=== PATIENT | female | born 1995 | race Hispanic/Latino ===

== ENCOUNTER 2023-04-27 09:18 | Emergency (ER) | payer OTHER ==
[2023-04-27 09:40] LABS: Specific Gravity 1.028 (1.005-1.030)
[2023-04-27] MEDS ORDERED: ONDANSETRON 4 MG/2 ML VIAL ONE (09:45)
[2023-04-27] MEDS ORDERED: NA CHLORIDE 0.9% 1,000 ML ONE (09:45)
[2023-04-27] MEDS ORDERED: MORPHINE 4 MG/ML SYR ONE (09:45)
[2023-04-27 09:47] LABS: Specific Gravity 1.028 (1.005-1.030); Urine Bacteria <20 /HPF (<20); Urine Bilirubin NEGATIVE (Negative); Urine Blood Trace (Negative); Urine Clarity Extremely Turbid (Clear); Urine Color Light-Yellow (Yellow); Urine Glucose NEGATIVE (Negative); Urine Mucus Slight /HPF (None Seen); Urine Protein 1+ (Negative); Urine Urobilinogen Normal (Normal); Urine pH 7.5 (5.0-7.0)
[2023-04-27 09:55] LABS: Absolute Lymphocytes (CBC) 1.7 K/uL (0.7-4.9); Hematocrit 36.9 % (36.0-45.0); MCV 84.7 fL (80-100); MPV 8.4 fL (7.6-11.3); Platelets 294 thou/uL (152-406); RBC Red Blood Cell Count 4.36 M/uL (3.86-4.86)
--- NOTE | 2023-04-27 10:30 | RAD REPORT ---
EXAM DESCRIPTION: CT - Stone Protocol - 04/27/2023 10:07 am CLINICAL HISTORY: Flank pain. FLANK PAIN COMPARISON: No comparisons TECHNIQUE: Axial images were obtained without oral or IV contrast. Lack of contrast limits solid org an and vascular assessment. The [id number] spans the entirety of the system partially obscuring uppermost abdomen and lung bases. Coronal reformatted images were obtained and reviewed. All CT scans are performed using dose optimization technique as appropriate and may include automated exposure control or mA/KV adjustment according to patient size. FINDINGS: The lower lung george are clear. Imaged portions of the liver demonstrates diffuse fatty infiltration.Spleen appears normal. The pancr eas and adrenal glands are normal. No pathologic lymphadenopathy in the abdomen or pelvis. 9 mm stone is present in the right renal pelvis resulting mild right hydronephrosis. Punctate calculu s inferior right kidney. Punctate stone left kidney also likely present. No bowel obstruction, free air, free fluid or abscess. Normal appendix noted. No significant bony abnormality. IMPRESSION: 9 mm calculus right renal pelvis with mild right hydronephrosis. Additional punctate calculi bilaterally.
[2023-04-27 10:43] LABS: Albumin 3.9 g/dL (3.4-5.0); Bilirubin Total 0.5 mg/dL (0.2-1.0); Potassium 3.7 mEq/L (3.5-5.1); Protein, Total 8.3 g/dL (6.4-8.2)
[2023-04-27] MEDS ORDERED: KETOROLAC 30 MG/ML INJ ONE (11:05)
--- NOTE | 2023-04-27 11:14 | ER ---
Nurse's Notes [facility] Name: Laura Edmondson Age: 27 yrs Sex: Female : 1995 Arrival Date: 04/27/2023 Time: 09:18 Bed 2 Private MD: Diagnosis: Calculus of kidney Presentation: 04/27 09:22 Chief complaint: Patient states: right flank pain since 0600 , + nausea, no hx of iw kidney stones , pain radiates to lower abd. Coronavirus screen: At this time, the client does not indicate any symptoms associated with coronavirus-19. Ebola Screen: Patient negative for fever greater than or equal to 101.5 degrees Fahrenheit, and additional compatible Ebola Virus Disease symptoms Patient denies exposure to infectious person. Patient denies travel to an Ebola-affected area in the 21 days before illness onset. No symptoms or risks identified at this time. Initial Sepsis Screen: Does the patient meet any 2 criteria? No. Patient's initial sepsis screen is negative. Does the patient have a suspected source of infection? No. Patient's initial sepsis screen is negative. Risk Assessment: Do you want to hurt yourself or someone else? Patient reports no desire to harm self or others. Onset of symptoms was April 27, 2023. 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 - Social history:: Smoking status: Patient denies any tobacco usage or history of. Screenin:40 [facility] ED Fall Risk Assessment (Adult) History of falling in the last 3 months, ko1 including since admission No falls in past 3 months (0 pts) Confusion or Disorientation No (0 pts) Intoxicated or Sedated No (0 pts) Impaired Gait No (0 pts) Mobility Assist Device Used No (0 pt) Altered Elimination No (0 pt) Score/Fall Risk Level 0 - 2 = Low Risk Oriented to surroundings, Maintained a safe environment, Educated pt \T\ family on fall prevention, incl call for assistance when getting out of bed, Assessed \T\ reinforced patient's understanding of fall precautions, Provided non-skid footwear, Hourly rounding (assess needs \T\ fall precautionary measures) done, Used ambulatory aids as needed (educated on \T\ assisted with), Used gait belt as appropriate. Abuse screen: Denies threats or abuse. Denies injuries from another. Nutritional screening: No deficits noted. Tuberculosis screening: No symptoms or risk factors identified. Assessment: 09:40 General: Appears distressed, uncomfortable, Behavior is calm, cooperative, appropriate ko1 for age. Pain: Complains of pain in back. Neuro: No deficits noted. Cardiovascular: No deficits noted. Respiratory: No deficits noted. GI: No deficits noted. : No deficits noted. EENT: No deficits noted. Derm: No deficits noted. Musculoskeletal: Reports pain in right mid back and right low back. Vital Signs: 09:22 BP 114 / 89; Pulse 115; Resp 18; Temp 97.7; Pulse Ox 100% on R/A; Weight 90.72 kg; Pain iw 10/10; 10:16 BP 116 / 73; Pulse 104; Resp 16; Pulse Ox 97% ; ko1 10:49 BP 109 / 72; Pulse 98; Resp 18; Pulse Ox 100% ; ko1 11:27 BP 120 / 78; Pulse 92; Resp 16; Pulse Ox 100% ; ko1 09:22 Pain Scale: Adult iw ED Course: 09:21 Patient arrived in ED. iw 09:22 Parul Allan [facility]-C [facility] kb 09:22 Mahad Morales MD is Attending Physician. kb 09:23 Triage completed. iw 09:24 Arm band placed on. iw 09:28 Raysa Leung, JANINA is Primary Nurse. ko1 09:33 Urinalysis w/ reflexes Sent. ko1 09:33 Test, Urine Sent. ko1 09:40 Patient has correct armband on for positive identification. Bed in low position. Call ko1 light in reach. Side rails up X2. Client placed on continuous cardiac and pulse oximetry monitoring. NIBP monitoring applied. manager division on. Door closed. Noise minimized. Lights dimmed. Warm blanket given. 09:40 Inserted saline lock: 20 gauge in left antecubital area, using aseptic technique. Blood ko1 collected. 09:48 CBC with Diff Sent. ko1 09:48 CMP Sent. ko1 09:48 Lipase Sent. ko1 10:08 Urine Culture Sent. ko1 10:09 CT Stone Protocol In Process Unspecified. EDMS 11:14 Juno Cadena MD is Referral Physician. kb 11:27 Provided Education on: na. ko1 11:27 No provider procedures requiring assistance completed. IV discontinued, intact, ko1 bleeding controlled, No redness/swelling at site. Pressure dressing applied. Administered Medications: 09:45 Drug: NS 0.9% IV 1000 ml IV at 1 bolus Per protocol; 1000 mL bolus Route: IV; Rate: 1 ko1 bolus; Site: left antecubital; 09:46 Drug: Ondansetron IVP 4 mg IVP once; over 2 minutes Route: IVP; Site: left antecubital; ko1 09:49 Drug: morphine IVP or IV 4 mg IVP once over 4 mins Route: IVP; Infused Over: 4 mins; ko1 Site: left antecubital; 10:53 Drug: Ketorolac IVP 15 mg IVP once Route: IVP; Site: left antecubital; ko1 11:21 Drug: [place] PO 10 mg-325 mg 1 tabs PO once Route: PO; ko1 11:21 Drug: Amoxicillin-Clavulanate PO 875 mg PO once Route: PO; ko1 Medication: 09:40 VIS not applicable for this client. ko1 Outcome: 11:13 Discharge ordered by . kb 11:27 Discharged to home ambulatory, with family, ko1 11:27 Condition: improved 11:27 Discharge instructions given to patient, family, Instructed on discharge instructions, follow up and referral plans. Demonstrated understanding of instructions, follow-up care, medications, Prescriptions given X 3, 11:36 Patient left the ED. ko1 Signatures: Dispatcher [employer] EDMN Parul Allan FNP-C FNP-Sarai Wiseman RN RN iw Raysa Leung RN RN ko1 Corrections: (The following items were deleted from the chart) 09:24 09:22 Pulse 105bpm; Resp 18bpm; Pulse Ox 100% RA; Temp 97.7F; 90.72 kg; Pain 10/10, iw Adult; iw 09:25 09:22 BP 114 / 89; Pulse 105bpm; Resp 18bpm; Pulse Ox 100% RA; Temp 97.7F; 90.72 kg; iw Pain 04/19, Adult; iw
--- NOTE | 2023-04-27 11:14 | EDPHYS ---
Physician Documentation [facility] Name: Laura Edmondson Age: 27 yrs Sex: Female : 1995 Arrival Date: 04/27/2023 Time: 09:18 Bed 2 Private MD: ED Physician Mahad Morales HPI: 04/27 11:15 This 27 yrs old Female presents to ER via Ambulatory with complaints of Flank kb Pain. 11:15 The patient complains of pain in the right flank. The pain does not radiate. Onset: The kb symptoms/episode began/occurred today, at 06:00. Modifying factors: The symptoms are alleviated by nothing. the symptoms are aggravated by palpation/percussion. Associated signs and symptoms: The patient has no apparent associated signs or symptoms. Severity of pain: At its worst the pain was moderate in the emergency department the pain is unchanged. The patient has not experienced similar symptoms in the past. The patient has not recently seen a physician. Pt reports sudden onset of right flank pain at 0600. Denies any urinary symptoms, fever, n/v.. 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 - Social history:: Smoking status: Patient denies any tobacco usage or history of. ROS: 11:16 Constitutional: Negative for fever, chills, and weight loss, kb 11:16 Back: Positive for flank pain, on the right, 11:16 All other systems are negative, Exam: 11:16 Constitutional: This is a well developed, well nourished patient who is awake, alert, kb and in no acute distress. Head/Face: Normocephalic, atraumatic. ENT: Moist Mucous membranes Cardiovascular: Regular rate Respiratory: Respirations even and unlabored. No increased work of breathing. Talking in full sentences Abdomen/GI: Soft, non-tender. No distention Skin: Warm, dry with normal turgor. Normal color. MS/ Extremity: Pulses equal, no cyanosis. Neurovascular intact. Full, normal range of motion. Neuro: Awake and alert, GCS 15, oriented to person, place, time, and situation. Moves all extremities. Normal gait. 11:16 Back: CVA tenderness, that is moderate, is noted on the right, Vital Signs: 09:22 BP 114 / 89; Pulse 115; Resp 18; Temp 97.7; Pulse Ox 100% on R/A; Weight 90.72 kg; Pain iw 10; 10:16 BP 116 / 73; Pulse 104; Resp 16; Pulse Ox 97% ; ko1 10:49 BP 109 / 72; Pulse 98; Resp 18; Pulse Ox 100% ; ko1 11:27 BP 120 / 78; Pulse 92; Resp 16; Pulse Ox 100% ; ko1 09:22 Pain Scale: Adult iw MDM: 09:22 Patient medically screened. kb 11:16 Differential diagnosis: nephrolithiasis, pyelonephritis, UTI. Data reviewed: vital kb signs, nurses notes. Counseling: I had a detailed discussion with the patient and/or guardian regarding the historical points, exam findings, and any diagnostic results supporting the discharge/admit diagnosis, lab results, radiology results, the need for outpatient follow up, a urologist, to return to the emergency department if symptoms worsen or persist or if there are any questions or concerns that arise at home. ED course: Discussed diagnostic results, need for follow up with urology and strict return precautions. Verbal understanding received. Pain controlled at this time. 04/27 09:27 Order name: CBC with Diff; Complete Time: 09:59 kb 04/27 09:27 Order name: CMP; Complete Time: 10:43 kb 04/27 09:27 Order name: Lipase; Complete Time: 10:43 kb 04/27 09:27 Order name: Test, Urine; Complete Time: 09:54 kb 04/27 09:27 Order name: Urinalysis w/ reflexes; Complete Time: 09:54 kb 04/27 09:53 Order name: Urine Culture EDMS 04/27 09:27 Order name: CT Stone Protocol; Complete Time: 10:30 kb 04/27 09:27 Order name: IV Saline Lock; Complete Time: 09:48 kb 04/27 09:27 Order name: Labs collected and sent; Complete Time: 09:48 kb Administered Medications: 09:45 Drug: NS 0.9% IV 1000 ml IV at 1 bolus Per protocol; 1000 mL bolus Route: IV; Rate: 1 ko1 bolus; Site: left antecubital; 09:46 Drug: Ondansetron IVP 4 mg IVP once; over 2 minutes Route: IVP; Site: left antecubital; ko1 09:49 Drug: morphine IVP or IV 4 mg IVP once over 4 mins Route: IVP; Infused Over: 4 mins; ko1 Site: left antecubital; 10:53 Drug: Ketorolac IVP 15 mg IVP once Route: IVP; Site: left antecubital; ko1 11:21 Drug: [place] PO 10 mg-325 mg 1 tabs PO once Route: PO; ko1 11:21 Drug: Amoxicillin-Clavulanate PO 875 mg PO once Route: PO; ko1 Disposition: 11:44 Co-signature as Attending Physician, Mahad Morales MD I reviewed the patient's care rt provided by the Advanced Practice Provider and agree with the diagnosis and treatment plan. Disposition Summary: 04/27/23 11:13 Discharge Ordered Notes: Location: Home kb Condition: Stable kb Diagnosis - Calculus of kidney kb Followup: kb - With: Emergency Department - When: As needed - Reason: Worsening of condition Followup: kb - With: Private Physician - When: 2 - 3 days - Reason: Recheck today's complaints, Continuance of care, Re-evaluation by your physician Followup: kb - With: Juno Cadena MD - When: 2 - 3 days - Reason: Recheck today's complaints Discharge Instructions: - Discharge Summary Sheet kb - Kidney Stones, [id number] kb Forms: - Medication Reconciliation Form kb - Thank You Letter kb - Antibiotic Education kb - Prescription Opioid Use kb - Patient Portal Instructions kb - Leadership Thank You Letter kb Prescriptions: - Augmentin 875-125 mg Oral Tablet - take 1 tablet ORAL route every 12 hours for 10 days; 20 tablet; Refills: 0, kb Product Selection Permitted - Zofran 4 mg Oral tablet - take 1 tablet ORAL route every 6 hours As needed; 12 tablet; Refills: 0, kb Product Selection Permitted - Diclofenac Sodium 75 mg Oral tablet, delayed release (enteric coated) - take 1 tablet ORAL route 2 times per day As needed; 30 tablet; Refills: 0, kb Product Selection Permitted Signatures: Dispatcher [employer] Parul Willams FNP-C JAPANESE PROFESSOR-Ckb Sarai Montgomery, RN RN iw Raysa Leung, RN RN ko1 Mahad Morales MD MD rt
[2023-04-27] MEDS ORDERED: HYDROCODONE/APAP 10/325 TAB ONE (11:33)
[2023-04-27] MEDS ORDERED: AMOX/K CLAV 875 MG TAB ONE (11:34)
[2023-04-27 11:49] VITALS: TEMP 97.7
[2023-04-27 12:00] VITALS: O2SAT 100
[2023-04-27 12:01] VITALS: BP 120/78
== END 2023-04-27 11:36 | disposition home or self-care (01) ==
LOC: ER 09:18
DX: N20.0 Calculus of kidney (principal)
CPT/HCPCS: 87088; 85025; 81001; 87086; 36415; 81025; 83690; 80053; 76377; 74176; J2405; J7030

== ENCOUNTER 2023-04-28 19:50 | Inpatient (IN) | payer OTHER ==
[~2023-04-28 19:50] MED LIST: CEFTRIAXONE 1,000 MG in NA CHLORIDE 0.9% 50 ML IVPB ONE
[2023-04-28] MEDS ORDERED: Ringers Lactate 1,000 ML IV ONE (20:26)
[2023-04-28] MEDS ORDERED: propofoL 200 MG/20 ML VIAL IV ONE (21:12)
[2023-04-28] MEDS ORDERED: FENTANYL CITR 100 MCG/2 ML ONE (21:12)
[2023-04-28] MEDS ORDERED: LIDOCAINE 1% MPF 5 ML VIAL ONE (21:12)
[2023-04-28] MEDS ORDERED: MIDAZOLAM HCL 2 MG/2 ML INJ ONE (21:12)
[2023-04-28] MEDS ORDERED: dexAMETHasone 10 MG/ML VIAL ONE (21:13)
[2023-04-28] MEDS ORDERED: KETOROLAC 30 MG/ML INJ ONE (21:13)
[2023-04-28] MEDS ORDERED: ONDANSETRON 4 MG/2 ML VIAL ONE (21:20)
--- OUTSIDE RECORDS SUMMARY | 2023-04-28 21:42 | XMS REPORT | Continuity of Care Document ---
:1995 Author Organization [facility] t Address [address] [place] [address] Care Team Providers Name Role Phone Radha Hernandez Attending Clinician Unavailable Physician, No Primary or Family Admitting Clinician Unavaila ble Payers Payer Name Policy Type Policy Number Effective Date Expiration Date S ource Problems This patient has no known problems. Allergies, Adverse Reactions, Alerts Allergy Allergy Status Severity Reaction(s) Onset Inactive Treating Comm ents Source Name Type Date Date Clinician No Known DA Active U 2018-0 [facility]- [facility] s 00:00: [address] No Known DA Active U 2018-0 [facility] - [facility] s 00:00: [address] No Known DA Active U 2015-0 [facility] - [facility] s 00:00: [address] Medications This patient has no known medications. Procedures This patient has no known procedures. Encounters Start End Encounter Admission Attending Care Care Encounter Source Date/Time Date/Time Type Type Clinicians Facility Department ID [id number] Outpatient [facility] [id number] Common 15:44:00 [id number] [facility] 2023-02-08 2023-02-08 Inpatient BALTA Rodarte OP [id number] [facility] 10:00:00 10:00:00 Radha Celeste [facility] Results Test Description Test Time Test Comments Results Result Comments Source AG HEPATITIS B SURFACE 2018-10-10 04:10:00 Test Item Value Reference Range Interpretation Comme nts AG HEPATITIS B SURFACE (test Negative Negative Performed At: [facility] code = HBSAG) [id number] [place], [place] [id number] sravani Kerr MD Ph:[phone] HGB [id number] 08:35:00 Test Item Value Reference Range Interpretation Comments HEMOGLOBIN (test code = HGB) 10.2 G/DL 12.0-16.0 L HEMATOCRIT (test code = HCT) 32.0 % 37-47 L MEAN CELL HGB CONCENTRATION (test 31.9 G/DL 33-37 L code = MCHC) RAPID PLASMA [id number] 09:36:00 Test Item Value Reference Range Interpretation Comments RAPID PLASMA REAGIN (test code = Nonreactive Nonreactive RPR) ISTAT CORD [id number] 06:59:00 Test Item Value Reference Range Interpretation Comments ISTAT-PH CORD (test 7.221 7.000-7.400 N Although the precise code = PHCOP) value that is required to defineacidem ia is not known, umbi lical arterial pH nataly ues of less than 7.0 m ore realistically r epresent clinically sign ificant acidosis. 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) CBC W/AUTO [id number] 05:58:00 Test Item Value Reference Range Interpretation Comments WHITE BLOOD CELL (test code = 10.69 x10 3/uL 4.80-10.80 N WBC) RED BLOOD CELL (test code = 3.69 x10 6/uL 4.2-5.4 L RBC) HEMOGLOBIN (test code = HGB) 11.5 G/DL 12.0-16.0 L HEMATOCRIT (test code = HCT) 34.9 % 37-47 L MEAN CELL VOLUME (test code = 94.6 FL 81-99 N MCV) MEAN CELL HGB (test code = 31.2 PG 27-31 H MCH) MEAN CELL HGB CONCENTRATION 33.0 G/DL 33-37 N (test code = MCHC) RED CELL DISTRIBUTION WIDTH 13.2 % 11.5-14.5 N (test code = RDW) PLATELET COUNT (test code = 203 x10 3/uL 150-450 N PLT) MEAN PLATELET VOLUME (test 10.9 FL 7.4-10.4 H code = MPV) NEUTROPHIL % (test code = NT%) 73.0 % 42-86 N IMMATURE GRANULOCYTE % (test 0.5 % 0.0-2.0 N code = IG%) LYMPHOCYTE % (test code = LY%) 18.0 % 24-44 L MONOCYTE % (test code = MO%) 6.7 % 0.0-4.0 H EOSINOPHIL % (test code = EO%) 1.5 % 0.0-2.7 N BASOPHIL % (test code = BA%) 0.3 % 0.0-0.5 N NUCLEATED RBC % (test code = 0.0 % 0.0-0.0 N NRBC%) NEUTROPHIL # (test code = NT#) 7.81 x10 3/uL 1.8-7.7 H IMMATURE GRANULOCYTE # (test 0.05 x10 3/uL 0.00-0.03 H code = IG#) LYMPHOCYTE # (test code = LY#) 1.92 x10 3/uL 1.0-4.8 N MONOCYTE # (test code = MO#) 0.72 x10 3/uL 0.0-0.8 N EOSINOPHIL # (test code = EO#) 0.16 x10 3/uL 0.0-0.5 N BASOPHIL # (test code = BA#) 0.03 x10 3/uL 0.0-0.2 N NUCLEATED RBC # (test code = 0.0 X10 3/uL 0.0-0.2 N NRBC#)
--- NOTE | 2023-04-28 21:48 | RAD REPORT ---
EXAM DESCRIPTION: RAD - Cystography - 04/28/2023 9:35 pm CLINICAL HISTORY: R Stent COMPARISON: None available. FINDINGS: Eight Images were sent to PACS, documenting hardware positions during cystourethrogram pro cedure. No radiologist was available for the procedure, nor will any image interpretation he provided . Please refer to the procedural report for additional details. Fluoroscopy time: 0.08 Minutes. Skin dose: 3.8 mGy IMPRESSION: Documentation of fluoroscopy utilization as above.
--- NOTE | 2023-04-28 21:55 | P.BOP ---
Preoperative diagnosis: Obstructive ureterolithiasis, right flank pain, SIRS/suspected sepsis Postoperative diagnosis: Same Primary procedure: Cystoscopy with right ureteral stent placement Secondary procedure: Right retrograde pyelography Other procedure(s): Urethral Chirinos catheter placement Estimated blood loss: Negligible Specimen: Right renal urine culture Findings: Purulent drainage from right kidney upon stent placement Anesthesia: General Complications: None Drain(s): Urinary catheter, Other (Right 6 Palestinian x 22 cm JJ stent) Transferred to: Recovery Room Condition: Fair
--- NOTE | 2023-04-28 21:56 | P.HP ---
Certification for Inpatient Patient admitted to: Inpatient With expected LOS: <2 Midnights Patient will require the following post-hospital care: None Practitioner: I am a practitioner with admitting privileges, knowledge of patient current condition, hospital course, and medical plan of care. Services: Services provided to patient in accordance with Admission requirements found in Title 42 Section 412.3 of the Code of Federal Regulations Patient History Date of Service: 04/29/23 Reason for admission: Fever, flank pain History of Present Illness: 27-year-old female presented to the emergency room yesterday with right flank pain. She reports pain aggravated by R flank palpitation. No reported nausea vomiting fever dysuria 04/27. Patient was diagnosed with renal calculus in emergency room.. Patient followed up with Dr. Cadena office today 04/28. Patient was tachycardic febrile. Patient was sent to OR for emergent cystoscopy with stent today. Plan to admit for IV hydration and pain control for renal calculus status post stent placement. Allergies No Known Allergies Allergy (Verified 04/28/23 22:24) Home Medications: NK [No Home Meds] 04/28/23 - Past Medical/Surgical History Diabetic: No -: Renal calculus -: - Social History Smoking Status: Never smoker Alcohol use: No CD- Drugs: No Caffeine use: Yes Place of Residence: Home Review of Systems 10-point ROS is otherwise unremarkable Physical Examination - Vital Signs Temperature: 99 F Blood Pressure: 105/45 Pulse: 117 Respirations: 18 - Physical Exam General: Alert, In no apparent distress, Other (Drowsy from postop anesthesia, responds to verbal) HEENT: Atraumatic, Normocephalic Neck: Supple, 2+ carotid pulse no bruit Respiratory: Clear to auscultation bilaterally, Normal air movement Cardiovascular: No edema, Normal pulses, Other (Tachycardic) Capillary refill: <2 Seconds Gastrointestinal: Normal bowel sounds, Soft and benign, Other (Right flank tenderness) Musculoskeletal: No clubbing, No swelling Neurological: Normal speech, Normal strength at 5/5 x4 extr Assessment and Plan - Plan Assessment plan Right renal calculus and status post cystoscopy with stent 04/28 Sepsis secondary to renal calculus without shock Dr. Cadena following, IV fluids, IV antibiotics, as needed analgesics, antiemetics I&O, Diet advance as tolerated Full code DVT SCDs Discharge Plan: Home Plan to discharge in: 48 Hours - Advance Directives Does patient have a Living Will: No Does patient have a Durable POA for Healthcare: No - Code Status/Comfort Care Code Status: Full Code Physician Review: Patient Assessed, Agree with Above Assessment and Plan Critical Care: No Time Spent Managing Pts Care (In Minutes): 50
[2023-04-28 22:27] VITALS: BMI 38.8
[2023-04-28] MEDS: NA CHLORIDE 0.9% 1,000 ML IV SCH (23:05)
--- NOTE | 2023-04-29 02:29 | OP ---
Surgeon: CORTNEY GARNICA Preoperative Diagnoses: 1.Right obstructive ureterolithiasis. 2.Right flank pain. 3.SIRS/suspected sepsis. Postoperative Diagnoses: 1.Right obstructive ureterolithiasis. 2.Right flank pain. 3.SIRS/suspected sepsis. Principal Procedures: 1.Cystoscopy. 2.Right retrograde pyelography. 3.Right ureteral stent placement. 4.Urethral Chirinos catheter placement. Indication For Procedure: Ms. Edmondson presented to the [facility]rology [facility] today having been seen in the emergency department yesterday with an obstructing 9 mm proximal right ureteral calculus. She had b een febrile with some rigors overnight and was tachycardic at the time of my visit with her this afte rnoon in the clinic. As a result, suspecting sepsis, I recommended urgent decompression. Since she had eaten a full meal at 3:30 p.m., she was not eligible for stent placement until 9:30 p.m. tonight. Procedure In Detail: The patient was consented in the preoperative holding area before being transfe rred to the operative suite where general anesthesia was induced. She was given ceftriaxone IV antim icrobial prophylaxis, and pneumo boots were provided for DVT prophylaxis. She was placed in the lith otomy position, padded and secured to the table appropriately, and her genitalia were prepped with Hi biclens and draped in standard fashion. The case was begun using a 22-Tanzanian rigid cystoscope to tra verse the urethra and into the bladder with ease. The bladder was decompressed of fluid and urine an d surveyed. There was evidence of cystitis cystica throughout indicative of chronic infection. The ureteral orifices were orthotopic in location, so the right ureteral orifice was cannulated using the tip of the 5-Tanzanian ureteral access catheter. Spot fluoroscopic imagery was obtained, and there was a faint calcification in the region of the proximal ureter/right renal pelvis. As a result, I perfo rmed a retrograde pyelogram. Right retrograde pyelography: Using a 70:30 mixture of Omnipaque and saline, contrast was injected v ia the lumen of the 5-Tanzanian ureteral access catheter and did propagate up the distal and to the mid and proximal ureter, entering the renal pelvis and delineating the upper portion of the midpole calyc es. As a result, because of concern for worsening her sepsis, no attempts to delineate the entirety of the collecting system were made, so I passed a Sensor wire via the 5-Tanzanian ureteral access cathet er coiling it within the upper pole of her kidney. At this point, prompt efflux of very purulent con taining urine from the right collecting system was observed, so I directed the cystoscope towards the purulent drainage coming out of the ureter and decompressed the bladder collecting that urine for cu lture. I then passed over the Sensor wire a 6-Tanzanian x 22 cm double-J ureteral stent with a coil obs erved fluoroscopically extending from the upper pole calyx down into the pelvis and 1 cystoscopically formed in her bladder. Because of the extensive amount of purulence draining out of her collecting system, I then placed an 18-Tanzanian urethral Chirinos catheter to assist in further decompression. She w as given fluid resuscitation and was then taken out of the lithotomy position after I removed the cys toscope. She was then awakened from general anesthesia, transferred to a stretcher, and then transfe rred to the recovery room in guarded condition due to signs of sepsis. Complications: None. Discharge Disposition: She should be admitted and followup of the right renal urine culture should b e done to determine the antimicrobial cultures and sensitivities. Blood cultures should also be obta ined to assess for signs of sepsis, except she has already been given ceftriaxone and may not populat e any cultures within the blood. As a result, I would likely treat her for at least 14 days with tis juvenal penetrating antimicrobial to treat suspected sepsis based on the culture results obtained. Patijessie nt will require followup in the Urology Clinic to discuss definitive management of the proximal right ureteral calculus once the infe ction is completely resolved. FRANCESCO/MODL Voice ID: [id number] Report ID: [id number]
[2023-04-29 03:40] LABS: Albumin 2.8 g/dL (3.4-5.0); Bilirubin Total 0.7 mg/dL (0.2-1.0); Magnesium 2.4 mg/dL (1.6-2.4); Potassium 4.1 mEq/L (3.5-5.1); Protein, Total 7.4 g/dL (6.4-8.2)
[2023-04-29] MEDS ORDERED: ONDANSETRON 4 MG/2 ML VIAL IV PRN ×2 (05:00)
[2023-04-29] MEDS: NA CHLORIDE 0.9% 1,000 ML IV SCH ×2 (06:23→15:53)
[2023-04-29] MEDS ORDERED: INFLUENZA VACCINE (for 6+ mo) 0.5 ML DOSE IMVAC ONE (08:00)
[2023-04-29] MEDS: CEFTRIAXONE 1,000 MG in NA CHLORIDE 0.9% 50 ML IVPB SCH ×2 (08:43→20:11)
[2023-04-29] MEDS: HYDROCODONE/APAP 5/325 MG TAB PO PRN ×2 (08:46→22:02)
[2023-04-29 08:54] VITALS: O2SAT 95
--- NOTE | 2023-04-29 14:41 | EKG ---
Test Date: 2023-04-28 Test Time: 20:29:58 Rfid Engineer: HARRY MEASUREMENT RESULTS: Intervals: Rate: 122 ID: [id number] QRSD: 74 QT: 306 QTc: 436 Blodgett: P: 43 ID: [id number] QRS: 51 T: 33 INTERPRETIVE STATEMENTS: Sinus tachycardia Otherwise normal ECG No previous ECG available for comparison Electronically Signed On 04-29-23 14:39:34 CDT by Adam Clarke
--- NOTE | 2023-04-29 15:14 | P.PN ---
Subjective Date of Service: 04/29/23 Chief Complaint: Fever, flank pain Patient states she feels much better today. She states her back pain is much better after ureteral stent placement last night. No fever today. Physical Examination - Vital Signs Temperature: 98.1 F Blood Pressure: 99/53 Pulse: 87 Respirations: 14 Pulse Ox (%): 97 - Studies Laboratory Data (last 24 hrs) 04/29/23 02:18 Sodium 140 Potassium 4.1 BUN 19 H Creatinine 1.07 H Glucose 175 H Magnesium 2.4 Total Bilirubin 0.7 AST 31 ALT 43 Alkaline Phosphatase 110 Assessment And Plan - Plan Physical Exam General: Alert, In no apparent distress. Neck: Supple Respiratory: Clear to auscultation bilaterally, Normal air movement Cardiovascular: No edema, Normal pulses, normal rate, regular rhythm. Gastrointestinal: Normal bowel sounds, Soft and benign, no tenderness Musculoskeletal: No clubbing, No swelling Neurological: Normal speech, Normal strength at 5/5 x4 extr Diagnosis Sepsis UTI Urolithiasis Hydronephrosis Plan: Patient seen by Dr. Albarado. Status post cystoscopy and urethral stent placement. Urine culture sent. Broad-spectrum antibiotics Follow urine culture for organism identification and sensitivity. I&O Patient with soft blood pressure. Monitor closely. Diet advance as tolerated Full code DVT: Lovenox.
[2023-04-30] MEDS: NA CHLORIDE 0.9% 1,000 ML IV SCH ×3 (02:10→11:31)
[2023-04-30 03:37] LABS: Albumin 2.5 g/dL (3.4-5.0); Bilirubin Total 0.3 mg/dL (0.2-1.0); Magnesium 2.5 mg/dL (1.6-2.4); Potassium 3.5 mEq/L (3.5-5.1); Protein, Total 6.8 g/dL (6.4-8.2)
[2023-04-30] MEDS: CEFTRIAXONE 1,000 MG in NA CHLORIDE 0.9% 50 ML IVPB SCH ×2 (08:13→19:48)
[2023-04-30] MEDS ORDERED: POTASSIUM CL SA 10 MEQ TAB PO ONE (09:00)
[2023-04-30] MEDS ORDERED: ENOXAPARIN 40 MG/0.4 ML SQ SCH (09:00)
[2023-04-30] MEDS: HYDROCODONE/APAP 5/325 MG TAB PO PRN ×2 (12:28→17:05)
--- NOTE | 2023-04-30 14:06 | P.DS ---
Admission Date: 04/28/23 Discharge Date: 04/30/23 Disposition: ROUTINE DISCHARGE Discharge Condition: FAIR Reason for Admission: Fever, flank pain Brief History of Present Illness: 27-year-old female presented to the emergency room with right flank pain. No reported nausea or vomiting or fever or dysuria. Patient was diagnosed with renal calculus in emergency room.. Patient followed up with Dr. Cadena office and noted to be tachycardic and febrile. Patient was sent to OR for emergent cystoscopy with stent today. Patient admitted for further management. Hospital Course: Diagnosis Sepsis UTI Urolithiasis Hydronephrosis Hospital course Patient admitted to the medical floor, seen by Dr. Cadena who performed cystoscopy with ureteral stent placement. Urine culture gram-negative rods. Patient treated with IV Rocephin. She became asymptomatic. Blood pressure readings are better. Patient tolerated diet, no nausea vomiting. She has been ambulatory. Vitals are stable, patient is deemed stable for discharge. Vital Signs/Physical Exam: Temp Pulse Resp BP Pulse Ox 98.3 F 102 H 18 125/78 99 04/30/23 12:00 04/30/23 12:00 04/30/23 12:00 04/30/23 12:00 04/30/23 12:00 General: Alert, In no apparent distress, Oriented x3, Obese HEENT: Mucous membr. moist/pink Respiratory: Clear to auscultation bilaterally, Normal air movement Cardiovascular: No edema, Regular rate/rhythm, Normal S1 S2 Gastrointestinal: Normal bowel sounds, Soft and benign, Non-distended Musculoskeletal: No swelling Integumentary: No rashes Neurological: Normal strength at 5/5 x4 extr Laboratory Data at Discharge: Sodium 139 mEq/L (136-145) 04/30/23 02:53 Potassium 3.5 mEq/L (3.5-5.1) D 04/30/23 02:53 BUN 15 mg/dL (7-18) 04/30/23 02:53 Creatinine 0.67 mg/dL (0.55-1.02) 04/30/23 02:53 Glucose 112 mg/dL (74-106) H 04/30/23 02:53 Magnesium 2.5 mg/dL (1.6-2.4) H 04/30/23 02:53 Total Bilirubin 0.3 mg/dL (0.2-1.0) 04/30/23 02:53 AST 26 U/L (15-37) 04/30/23 02:53 ALT 42 U/L (13-56) 04/30/23 02:53 Alkaline Phosphatase 91 U/L (45-117) 04/30/23 02:53 Home Medications: Cefpodoxime Proxetil 200 mg PO BID #40 tab 04/30/23 Codeine/APAP [Tylenol W/Codeine #3 tab] 1 tab PO Q6HP PRN #12 tab 04/30/23 New Medications: Codeine/APAP [Tylenol W/Codeine #3 tab] 1 tab PO Q6HP PRN #12 tab PRN Reason: Pain Cefpodoxime Proxetil 200 mg PO BID #40 tab Diet: Regular Activity: Ad nicole Followup: Juno Cadena [ACTIVE - CAN ADMIT] - 1-2 Weeks Time spent managing pt's care (in minutes): 34
--- NOTE | 2023-04-30 15:51 | P.PN ---
Subjective Date of Service: 04/30/23 Chief Complaint: Fever, flank pain Patient has no new complaint today. She denies any pain. She is eating well and she is ambulatory. No recorded fever. Physical Examination - Vital Signs Temperature: 98.3 F Blood Pressure: 125/78 Pulse: 102 Respirations: 18 Pulse Ox (%): 99 - Studies Laboratory Data (last 24 hrs) 04/30/23 02:53 Sodium 139 Potassium 3.5 D BUN 15 Creatinine 0.67 Glucose 112 H Magnesium 2.5 H Total Bilirubin 0.3 AST 26 ALT 42 Alkaline Phosphatase 91 Assessment And Plan - Plan Physical Exam General: Alert, In no apparent distress. Neck: Supple Respiratory: Clear to auscultation bilaterally, Normal air movement Cardiovascular: No edema, Normal pulses, normal rate, regular rhythm. Gastrointestinal: Normal bowel sounds, Soft and benign, no tenderness Musculoskeletal: No clubbing, No swelling Diagnosis Sepsis UTI Urolithiasis Hydronephrosis Plan: Patient seen by Dr. Albarado. Status post cystoscopy and urethral stent placement. Urine culture growing gram-negative rods, organism identity and sensitivities pending Continue IV Rocephin Patient is voiding without difficulty. No hematuria. Discontinue Chirinos catheter. Normal blood pressure. Full code DVT: Lovenox.
[2023-05-05 12:39] VITALS: BP 111/64; TEMP 98.7
== END 2023-04-30 21:41 | disposition home or self-care (01) | DRG 854 ==
LOC: OR 19:50 → 2ND 21:35
PROVIDERS: ADMIT Internal Medicine; ATTEND Internal Medicine
PROC: BT1D1ZZ Fluoroscopy of Right Kidney, Ureter and Bladder using Low Osmolar Contrast (ICD-10-PCS; 2023-04-28)
PROC: 0T768DZ Dilation of Right Ureter with Intraluminal Device, Via Natural or Artificial Opening Endoscopic (ICD-10-PCS; principal; 2023-04-28 21:30)
DX: A41.9 Sepsis, unspecified organism (principal); N13.6 Pyonephrosis; Z79.899 Other long term (current) drug therapy
CPT/HCPCS: 36415; 51600; 74430; 80053; 83735; 87077; 87086; 87088; 87186; 93005; J0696; J1100; J1650; J2001; J2250; J2405; J2704; J3010; J7030; J7120

== ENCOUNTER 2023-06-07 08:28 | Day surgery (SDC) | payer OTHER ==
[2023-05-30 15:02] LABS: Lymphocytes % 28.9 % (15.3-44.8); MCV 86.6 fL (80-100); Platelets 314 thou/uL (152-406); Protime INR 1.07; RBC Red Blood Cell Count 4.04 M/uL (3.86-4.86)
[2023-05-30 15:13] LABS: Potassium 3.5 mEq/L (3.5-5.1)
[2023-06-07] MEDS ORDERED: Ringers Lactate 1,000 ML IV ONE (08:51)
[2023-06-07] MEDS ORDERED: MIDAZOLAM HCL 2 MG/2 ML INJ ONE (09:54)
[2023-06-07] MEDS ORDERED: propofoL 200 MG/20 ML VIAL IV ONE (09:54)
[2023-06-07] MEDS ORDERED: FENTANYL CITR 100 MCG/2 ML ONE ×2 (09:54→10:27)
[2023-06-07] MEDS ORDERED: ONDANSETRON 4 MG/2 ML VIAL ONE (09:54)
[2023-06-07] MEDS ORDERED: LIDOCAINE 1% MPF 5 ML VIAL ONE (09:55)
[2023-06-07] MEDS: CEFAZOLIN SODIUM 2 GM/VIAL ONE ×2 (10:09→10:19)
[2023-06-07] MEDS ORDERED: dexAMETHasone 10 MG/ML VIAL ONE (10:16)
[2023-06-07] MEDS ORDERED: Mastisol Adhesive Liq ONE (10:48)
[2023-06-07] MEDS ORDERED: KETOROLAC 30 MG/ML INJ ONE (10:48)
[2023-06-07] MEDS ORDERED: PHENAZOPYRIDINE 100MG TAB PO ONE (11:36)
[2023-06-07] MEDS ORDERED: HYDROCODONE/APAP 5/325 MG TAB PO PRN (11:36)
--- NOTE | 2023-06-07 12:37 | OP ---
Surgeon: CORTNEY GARNICA Preoperative Diagnoses: 1.Right ureterolithiasis, 9.5 mm. 2.Status post right ureteral stent placement. Postoperative Diagnoses: 1.Right nephrolithiasis, 9.5 mm. 2.History of ureterolithiasis. 3.History of right ureteral stent placement. Principal Procedures: 1.Cystoscopy. 2.Right retrograde pyelography. 3.Right ureteroscopy with pyeloscopy and laser lithotripsy. 4.Right ureteral stent exchange. Indication For Procedure: Ms. Edmondson is a 28-year-old woman who presented via the emergency depart [facility] with a proximal right obstructive stone complicated by pyelonephritis and sepsis. She was admit to, underwent right ureteral stent placement, and ultimately treated and discharged with antimicrobi al therapy for 20 days. She subsequently had recurrence of an infection that was treated with Bactri m for 10 days, and she presents today for definitive management of her right ureteral stone. Procedure In Detail: The patient was consented in the preoperative holding area before being transfe rred to the operative suite where general anesthesia was induced. She was given Ancef 2 g IV antimic robial prophylaxis, and pneumo boots were provided for DVT prophylaxis. She was placed in the lithot paulina position, padded and secured to the table appropriately, and her genitalia were prepped with Hibi clens before being draped in standard fashion. The case was begun using a 22-German rigid cystoscope to traverse the urethra and into the bladder with ease. The bladder was decompressed of fluid and u rine, and the coil of the right ureteral stent was emanating from the right ureteral orifice. It was slightly encrusted despite only having been in place for about a little over a month at this point. I thus grasped the coil of the stent and delivered the tip to the meatus leaving the proximal end of the stent in the mid proximal ureter as evidenced fluoroscopically. I then passed the Sensor wire v ia the stent into the putative collecting system as observed fluoroscopically. I removed the stent l eaving the wire in place, and passed over the wire a dual-lumen catheter. Right retrograde pyelography: Using a 70:30 mixture of Omnipaque and saline, contrast was injected v ia the second lumen of the dual-lumen catheter and did propagate from the tip of the dual-lumen edu ter in the mid ureter into the proximal ureter before entering the renal pelvis and calices confirmin g the appropriate position of the wire. The calculus was observed to be at this point depended withi n the lower pole of the kidney, having likely been displaced with stent placement out of the proximal ureter. As a result, I passed a Bentson guidewire via the second lumen of the dual-lumen catheter i nto the upper pole calyx, coiling it alongside the Sensor wire, and I removed the dual-lumen catheter . Right ureteroscopy and pyeloscopy with laser lithotripsy: I then passed a flexible ureteroscope over the Bentson guidewire into her collecting system and upper pole. I surveyed each of the calices of the kidney down through the upper and mid and lower pole calyces without identifying any additional c alculi before entering the lower pole calyx where the 9 mm calculus was visible. I thus utilized a 2 72 nm laser fiber at a power setting of 1 joule and 15 hertz that was increased to 25 hertz to initia lly fragment and then dust the stone until the fragments were about the size of the laser fiber or no more than twice the size of the laser fiber or less than 500 microns. I then backed the ureteroscop e into the renal pelvis and again surveyed the calices before backing down into the proximal and surv eying down the mid and distal ureter where no additional stones were noted and no significant uretera l trauma or injury had occurred. As a result, I removed the ureteroscope and then backloaded the cys toscope over the indwelling safety wire. I then passed a 6-German x 24 cm double-J ureteral stent over the safety Sensor wire successfully coi ling it within the renal pelvis as observed fluoroscopically. The stent was left on its tether, rian moyer did coil in the patient's bladder, and I then decompressed her bladder of fluid and urine before se curing the tether to her introitus and in her right thigh. She was then taken out of the lithotomy p osition, awakened from general anesthesia, transferred to a stretcher, and then transferred to the re covery room in good condition. Complications: None. Discharge Disposition: She should maintain the tethered ureteral stent for the next 3 to 5 days, and it may be removed on either Tuesday or Tuesday. 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 She should also strain her urine to collec t any stone dust that may subsequently pass out of the lower pole of her kidney and is more prone to pass when the stent has been extracted. Subsequent followup should be established if she is a recurr ent stone former, in about 2 to 3 months with a Litholink done about 1 month prior. If she is a firs t time stone former, she should be exquisitely counseled that she needs to increase the volume of her water intake such that her bladder is full and she needs to void at least every 3 to 4 hours during the day with a full bladder. She should also add lemon to her water and cranberry juice to her diet in order to get citric acid, which is an inhibitor of stone formation. FRANCESCO/SHRUTHI Voice ID: [id number] Report ID: [id number]
[2023-06-07 14:03] VITALS: BP 101/67; TEMP 97; O2SAT 98
--- NOTE | 2023-06-07 14:39 | RAD REPORT ---
EXAM DESCRIPTION: RAD - Urethrocystogrphy Retrograde - 06/07/2023 1:34 pm CLINICAL HISTORY: RT STENT EXCHANGE COMPARISON: <Comparisons> FINDINGS: Total fluoro time: 0.1 minute
== END 2023-06-07 12:54 | disposition home or self-care (01) ==
LOC: OR 08:28
PROVIDERS: ATTEND Urology
PROC: 0T768DZ Dilation of Right Ureter with Intraluminal Device, Via Natural or Artificial Opening Endoscopic (ICD-10-PCS; 2023-06-07)
PROC: 0TF38ZZ Fragmentation in Right Kidney Pelvis, Via Natural or Artificial Opening Endoscopic (ICD-10-PCS; principal; 2023-06-07 10:15)
DX: N20.0 Calculus of kidney (principal); T83.84XA Pain due to genitourinary prosthetic devices, implants and grafts, initial encounter; N39.0 Urinary tract infection, site not specified; Z87.442 Personal history of urinary calculi
CPT/HCPCS: 87088; 85025; 87086; 80048; 36415 ×2; 84703; 85610; 74450; 51610; 52356; J2704; J2001; J2250; J3010 ×2; J1100; J2405; J7120